=== PATIENT | male | born 1985 | race Caucasian/White ===

== ENCOUNTER 2019-06-19 14:20 | Inpatient (IN) | payer MEDICAID, OTHER ==
[~2019-06-19] VITALS: Ht 180.3 cm; Wt 91.1 kg
[~2019-06-19 14:20] MED LIST: FLUO10TA3 PO; OLAN10TA3 PO; TRAZ300T2 PO
[2019-06-19 14:49] LABS: GLUCOSE,POINT OF CARE 135 MG/DL (70-110)
[2019-06-19 15:42] LABS: BASOPHILS % (AUTO) 0.6 % (0.0-2.0); EOSINOPHILS % (AUTO) 1.5 % (1.0-6.0); HEMATOCRIT 43.7 % (41-53); HEMOGLOBIN 14.2 g/dL (13.5-17.5); LYMPHOCYTES # (AUTO) 2.2 K/uL (1.0-4.8); LYMPHOCYTES % (AUTO) 24.1 % (22.0-44.0); MEAN CORPUSCULAR HEMOGLOBIN 26.1 pg (26.0-34.0); MEAN CORPUSCULAR HGB CONC 32.5 G/dL (31.0-37.0); MEAN CORPUSCULAR VOLUME 80 fL (80-100); MONOCYTES # (AUTO) 0.6 K/uL (0.1-1.0); MONOCYTES % (AUTO) 6.9 % (2.0-9.0); NEUTROPHILS # (AUTO) 6.2 K/uL (1.8-7.7); NEUTROPHILS % (AUTO) 66.9 % (40.0-70.0); PLATELET COUNT (AUTO) 387 K/uL (150-450); RED BLOOD CELL COUNT(AUTO) 5.45 MIL/uL (4.50-5.90); RED CELL DISTRIBUTION WIDTH 13.1 % (11.5-14.5)
[2019-06-19 15:48] LABS: ANION GAP 9 mmol/L (8-16); CALCIUM, TOTAL 9.2 mg/dL (8.8-10.5); CARBON DIOXIDE 28 mmol/L (22-29); CHLORIDE 103 mmol/L (98-107); CREATININE 1.14 mg/dL (0.60-1.30); GLOMERULAR FILTR. RATE CALC > 60 mL/min (>60); GLUCOSE,RANDOM 110 mg/dL (70-110); POTASSIUM 3.9 mmol/L (3.5-5.1); SODIUM SERUM 140 mmol/L (136-145); UREA NITROGEN, BLOOD 9 mg/dL (7-18)
[2019-06-19 15:53] LABS: ALANINE AMINOTRANSFERASE 43 U/L (12-78); ALBUMIN 3.6 g/dL (3.4-5.0); ALKALINE PHOSPHATASE 128 U/L (46-116); ASPARTATE AMINOTRANSFERASE 23 U/L (15-37); BILIRUBIN,TOTAL 0.4 mg/dL (0.1-1.0); TOTAL PROTEIN, SERUM 7.1 g/dL (6.4-8.2)
[2019-06-19] MEDS ORDERED: HALOPERIDOL 5 MG TABLET PO PRN (16:45)
[2019-06-19] MEDS ORDERED: ZOLPIDEM TARTRATE 10 MG TABLET PO PRN (16:45)
[2019-06-19] MEDS ORDERED: LORazepam 2 MG TABLET PO PRN (16:45)
[2019-06-19 16:54] LABS: AMPHET/METH SCREEN,URINE NEGATIVE (NEGATIVE); BARBITURATE SCREEN, URINE NEGATIVE (NEGATIVE); BENZODIAZEPINES SCREEN,URINE NEGATIVE (NEGATIVE); CANNABINOID SCREEN,URINE POSITIVE (NEGATIVE); COCAINE SCREEN,URINE NEGATIVE (NEGATIVE); METHADONE SCREEN, URINE NEGATIVE (NEGATIVE); OPIATE SCREEN,URINE NEGATIVE (NEGATIVE); PHENCYCLIDINE SCREEN,URINE NEGATIVE (NEGATIVE)
[2019-06-19 21:09] VITALS: BP 113/71
[2019-06-20 05:37] VITALS: BP 126/75
[2019-06-20 08:09] LABS: CHOL/HDL RATIO 4.4 (4.2-7.3); FREE T4 (FREE THYROXINE) 1.13 ng/dL (0.76-1.46); THYROID STIMULATING HORMONE 0.34 uIU/mL (0.36-3.74)
[2019-06-20 08:26] VITALS: BP 117/98
[2019-06-20] MEDS ORDERED: ONDANSETRON HCL 4 MG TABLET PO PRN (08:30)
[2019-06-20] MEDS ORDERED: ALBUTEROL SULFATE HFA 90 MCG/PUFF 8 GM INHALER IH PRN (08:30)
[2019-06-20] MEDS ORDERED: LOPERAMIDE HCL 2 MG CAPSULE PO PRN (08:30)
[2019-06-20] MEDS ORDERED: MAGNESIUM HYDROXIDE SUSPENSION 30 ML UDCUP PO PRN (08:30)
[2019-06-20] MEDS ORDERED: MAG HYDROX/AL HYDROX/SIMETH ES 30 ML SUSPENSION UDCUP PO PRN (08:30)
[2019-06-20] MEDS ORDERED: CloNIDine HCL 0.1 MG TABLET PO PRN (08:30)
[2019-06-20] MEDS ORDERED: PETROLATUM,WHITE 28 GM JELLY TP PRN (08:30)
[2019-06-20] MEDS ORDERED: GuaiFENesin/D-METHORPHAN [SUGAR-FREE] 200-20MG/10 ML SYRUP UDCUP PO PRN (08:30)
[2019-06-20] MEDS ORDERED: IBUPROFEN 400 MG TABLET PO PRN (08:30)
[2019-06-20] MEDS ORDERED: ACETAMINOPHEN 325 MG TABLET PO PRN (08:30)
[2019-06-20] MEDS ORDERED: NICOTINE 14 MG/24 HOUR PATCH TD PRN (08:30)
[2019-06-20] MEDS ORDERED: DOCUSATE SODIUM 100 MG CAPSULE PO PRN (08:30)
[2019-06-20 19:18] VITALS: BP 114/70
[2019-06-20] MEDS: OLANZapine 10 MG TABLET PO SCH (20:17)
[2019-06-21 05:51] LABS: GLUCOMETER DEV NAME(LOC) 3E.I 2; GLUCOSE,POINT OF CARE 137 MG/DL (70-110)
[2019-06-21 09:47] VITALS: BP 125/86
[2019-06-21 19:37] VITALS: BP 141/79
[2019-06-21] MEDS: OLANZapine 10 MG TABLET PO SCH (20:13)
[2019-06-22 04:49] VITALS: BP 125/80
[2019-06-22 05:37] LABS: GLUCOMETER DEV NAME(LOC) 3E.I 2; GLUCOSE,POINT OF CARE 153 MG/DL (70-110)
[2019-06-22 09:10] VITALS: BP 134/89
[2019-06-22 19:12] VITALS: BP 115/76
[2019-06-22] MEDS: OLANZapine 10 MG TABLET PO SCH (21:01)
[2019-06-23 02:05] VITALS: BP 135/84
[2019-06-23 05:56] LABS: GLUCOMETER DEV NAME(LOC) 3E.I 2; GLUCOSE,POINT OF CARE 124 MG/DL (70-110)
[2019-06-23 09:07] VITALS: BP_SYST 131; BP_SYST 140; BP_DIAS 76; BP_DIAS 79
[2019-06-23 16:56] LABS: GLUCOMETER DEV NAME(LOC) 3E.I 2; GLUCOSE,POINT OF CARE 94 MG/DL (70-110)
[2019-06-23 20:12] VITALS: BP 127/86
[2019-06-23] MEDS: OLANZapine 10 MG TABLET PO SCH (20:34)
[2019-06-24 06:06] LABS: GLUCOMETER DEV NAME(LOC) 3E.I 2; GLUCOSE,POINT OF CARE 130 MG/DL (70-110)
[2019-06-24 11:22] VITALS: BP 128/80
[2019-06-24 16:15] LABS: GLUCOMETER DEV NAME(LOC) 3E.I 2; GLUCOSE,POINT OF CARE 104 MG/DL (70-110)
[2019-06-24 16:19] VITALS: BP 125/82
[2019-06-24] MEDS: OLANZapine 10 MG TABLET PO SCH (19:47)
[2019-06-25 05:27] LABS: GLUCOMETER DEV NAME(LOC) 3E.I 2; GLUCOSE,POINT OF CARE 129 MG/DL (70-110)
[2019-06-25 09:57] VITALS: BP 153/90
[2019-06-25 16:53] LABS: GLUCOMETER DEV NAME(LOC) 3E.I 2; GLUCOSE,POINT OF CARE 100 MG/DL (70-110)
[2019-06-25 17:46] VITALS: BP 125/80
[2019-06-25] MEDS: OLANZapine 10 MG TABLET PO SCH (20:11)
[2019-06-26 05:41] LABS: GLUCOMETER DEV NAME(LOC) 3E.I 2; GLUCOSE,POINT OF CARE 140 MG/DL (70-110)
[2019-06-26 08:00] VITALS: BP 146/93
[2019-06-26 16:45] VITALS: BP 126/79
[2019-06-26] MEDS: OLANZapine 10 MG TABLET PO SCH (20:42)
[2019-06-27 05:45] LABS: GLUCOMETER DEV NAME(LOC) 3E.I 2; GLUCOSE,POINT OF CARE 136 MG/DL (70-110)
[2019-06-27 08:38] VITALS: BP 139/85
[2019-06-27 16:52] VITALS: BP 145/79
[2019-06-27] MEDS: OLANZapine 10 MG TABLET PO SCH (20:12)
[2019-06-28 05:37] LABS: GLUCOMETER DEV NAME(LOC) 3E.I 2; GLUCOSE,POINT OF CARE 121 MG/DL (70-110)
[2019-06-28 11:16] VITALS: BP 145/92
[2019-06-28 19:08] VITALS: BP 137/79
[2019-06-28] MEDS: OLANZapine 10 MG TABLET PO SCH (20:24)
[2019-06-29 06:03] LABS: GLUCOMETER DEV NAME(LOC) 3E.I 2; GLUCOSE,POINT OF CARE 152 MG/DL (70-110)
[2019-06-29 09:05] VITALS: BP 125/75
== END 2019-06-29 15:00 | disposition home or self-care (01) | DRG 885 ==
LOC: EMS 14:25 → 3EI 17:10
DX: F20.1 Disorganized schizophrenia (principal); E11.9 Type 2 diabetes mellitus without complications; F12.10 Cannabis abuse, uncomplicated; F10.10 Alcohol abuse, uncomplicated; G47.00 Insomnia, unspecified; Z59.0 Homelessness; Z87.891 Personal history of nicotine dependence; Z91.5 Personal history of self-harm
CPT/HCPCS: 83036; 84439; 84443; G0480

== ENCOUNTER 2019-11-18 12:47 | Emergency (ER) | payer MEDICAID, OTHER ==
[~2019-11-18] VITALS: Ht 175.3 cm; Wt 75.0 kg
[~2019-11-18 12:47] MED LIST changes: -FLUO10TA3 PO; -TRAZ300T2 PO
[2019-11-18 15:28] LABS: BASOPHILS % (AUTO) 0.7 % (0.0-2.0); EOSINOPHILS % (AUTO) 1.6 % (1.0-6.0); HEMATOCRIT 47.7 % (41-53); HEMOGLOBIN 16.6 g/dL (13.5-17.5); LYMPHOCYTES # (AUTO) 2.5 K/uL (1.0-4.8); LYMPHOCYTES % (AUTO) 30.9 % (22.0-44.0); MEAN CORPUSCULAR HEMOGLOBIN 28.1 pg (26.0-34.0); MEAN CORPUSCULAR HGB CONC 34.8 G/dL (31.0-37.0); MEAN CORPUSCULAR VOLUME 81 fL (80-100); MONOCYTES # (AUTO) 0.5 K/uL (0.1-1.0); MONOCYTES % (AUTO) 6.5 % (2.0-9.0); NEUTROPHILS # (AUTO) 4.8 K/uL (1.8-7.7); NEUTROPHILS % (AUTO) 60.3 % (40.0-70.0); PLATELET COUNT (AUTO) 398 K/uL (150-450); RED BLOOD CELL COUNT(AUTO) 5.91 MIL/uL (4.50-5.90); RED CELL DISTRIBUTION WIDTH 13.9 % (11.5-14.5)
[2019-11-18 15:37] LABS: ANION GAP 6 mmol/L (8-16); CALCIUM, TOTAL 9.9 mg/dL (8.8-10.5); CARBON DIOXIDE 30 mmol/L (22-29); CHLORIDE 101 mmol/L (98-107); CREATININE 1.01 mg/dL (0.60-1.30); GLOMERULAR FILTR. RATE CALC > 60 mL/min (>60); GLUCOSE,RANDOM 97 mg/dL (70-110); SODIUM SERUM 137 mmol/L (136-145); UREA NITROGEN, BLOOD 9 mg/dL (7-18)
[2019-11-18 15:44] LABS: ALANINE AMINOTRANSFERASE 38 U/L (12-78); ALBUMIN 4.4 g/dL (3.4-5.0); ALKALINE PHOSPHATASE 130 U/L (46-116); ASPARTATE AMINOTRANSFERASE 24 U/L (15-37); BILIRUBIN,TOTAL 0.7 mg/dL (0.1-1.0); TOTAL PROTEIN, SERUM 8.3 g/dL (6.4-8.2)
[2019-11-18 16:51] VITALS: BP 121/63
[2019-11-18] MEDS ORDERED: LORazepam 2 MG TABLET PO ONE (17:00)
== END 2019-11-18 17:02 | disposition home or self-care (01) ==
LOC: EMS 12:51
DX: F20.9 Schizophrenia, unspecified (principal); E11.9 Type 2 diabetes mellitus without complications; F17.210 Nicotine dependence, cigarettes, uncomplicated; F12.90 Cannabis use, unspecified, uncomplicated; F19.90 Other psychoactive substance use, unspecified, uncomplicated
CPT/HCPCS: 36415; 80053; 85025; 99284; G0480

== ENCOUNTER 2019-12-28 03:48 | Emergency (ER) | payer MEDICAID, OTHER ==
[~2019-12-28] VITALS: Ht 180.3 cm; Wt 72.7 kg
[2019-12-28] MEDS ORDERED: PROZ10 PO (03:56)
[2019-12-28] MEDS ORDERED: DIPH25CA85 PO (03:56)
[2019-12-28] MEDS ORDERED: TRAZ-252 PO (03:56)
[2019-12-28 04:00] VITALS: BP 122/79
[2019-12-28] MEDS ORDERED: LORazepam 1 MG TABLET PO ONE (04:15)
[2019-12-28 04:54] LABS: BASOPHILS % (AUTO) 0.5 % (0.0-2.0); EOSINOPHILS % (AUTO) 0.9 % (1.0-6.0); HEMATOCRIT 44.2 % (41-53); HEMOGLOBIN 14.8 g/dL (13.5-17.5); LYMPHOCYTES # (AUTO) 1.5 K/uL (1.0-4.8); LYMPHOCYTES % (AUTO) 15.9 % (22.0-44.0); MEAN CORPUSCULAR HEMOGLOBIN 27.4 pg (26.0-34.0); MEAN CORPUSCULAR HGB CONC 33.5 G/dL (31.0-37.0); MEAN CORPUSCULAR VOLUME 82 fL (80-100); MONOCYTES # (AUTO) 0.5 K/uL (0.1-1.0); MONOCYTES % (AUTO) 5.1 % (2.0-9.0); NEUTROPHILS # (AUTO) 7.5 K/uL (1.8-7.7); NEUTROPHILS % (AUTO) 77.6 % (40.0-70.0); PLATELET COUNT (AUTO) 339 K/uL (150-450); RED BLOOD CELL COUNT(AUTO) 5.41 MIL/uL (4.50-5.90); RED CELL DISTRIBUTION WIDTH 13.7 % (11.5-14.5)
[2019-12-28 04:56] LABS: ANION GAP 6 mmol/L (8-16); CALCIUM, TOTAL 8.9 mg/dL (8.8-10.5); CARBON DIOXIDE 31 mmol/L (22-29); CHLORIDE 102 mmol/L (98-107); CREATININE 0.91 mg/dL (0.60-1.30); GLOMERULAR FILTR. RATE CALC > 60 mL/min (>60); GLUCOSE,RANDOM 118 mg/dL (70-110); POTASSIUM 3.9 mmol/L (3.5-5.1); SODIUM SERUM 139 mmol/L (136-145); UREA NITROGEN, BLOOD 10 mg/dL (7-18)
[2019-12-28 05:02] LABS: ALANINE AMINOTRANSFERASE 26 U/L (12-78); ALBUMIN 3.6 g/dL (3.4-5.0); ALKALINE PHOSPHATASE 122 U/L (46-116); ASPARTATE AMINOTRANSFERASE 19 U/L (15-37); BILIRUBIN,TOTAL 0.4 mg/dL (0.1-1.0); TOTAL PROTEIN, SERUM 6.4 g/dL (6.4-8.2)
[2019-12-28] MEDS ORDERED: ARIP300S3 IM (05:08)
== END 2019-12-28 05:40 | disposition home or self-care (01) ==
LOC: EMS 03:48
DX: F20.9 Schizophrenia, unspecified (principal); F41.9 Anxiety disorder, unspecified; F17.210 Nicotine dependence, cigarettes, uncomplicated; F12.90 Cannabis use, unspecified, uncomplicated; F19.90 Other psychoactive substance use, unspecified, uncomplicated
CPT/HCPCS: 36415; 80053; 85025; 99284; G0480